=== PATIENT | male | born 1990 | race Caucasian/White ===

== ENCOUNTER 2018-01-05 14:44 | Outpatient (RCR) | payer BC ==
[2018-01-05 16:22] LABS: SEMEN VOLUME 6.6 ML (1.5-5.0)
== END 2018-04-05 | disposition home or self-care (01) ==
LOC: LAB 14:44
PROVIDERS: ATTEND Nurse Practitioner Family
DX: N46.9 Male infertility, unspecified (principal)
CPT/HCPCS: 89320

== ENCOUNTER 2019-03-05 05:39 | Emergency (ER) | payer BC, OTHER ==
[~2019-03-05] VITALS: Ht 182.9 cm; Wt 77.1 kg
--- NOTE | 2019-03-05 05:55 | ED Upper Extremity ---
General Chief Complaint: Upper Extremity Stated Complaint: W/C, SMASHED RIGHT MIDDLE FINGER Nursing Triage Note: PT AMBULATE TO ROOM FS06 WITH C/O RIGHT FINGER INJURY WHILE AT WORK. PT REPORTS HIS FINGER WAS SMASHED IN BETWEEN TWO PIECES OF METAL. Nursing Sepsis Screen: No Definite Risk Source: patient Exam Limitations: no limitations (CHRISTIANE AGUILAR DO) History of Present Illness Date Seen by Provider: Mar 05, 2019 Time Seen by Provider: 05:55 Initial Comments 28-year-old male reports that he smashed his right middle finger while at work. He reports that he smashed between 2 pieces of metal. He has some minor bleeding and injury to the nail. He has full range of motion but painful. Patient reports no other injuries. (CHRISTIANE AGUILAR DO) Allergies and Home Medications Allergies Coded Allergies: Penicillins (Unverified Allergy, Unknown, 03/05/19) Patient Home Medication List Home Medication List Reviewed: Yes (CHRISTIANE AGUILAR DO) Review of Systems Constitutional: no symptoms reported Respiratory: no symptoms reported Cardiovascular: no symptoms reported Gastrointestinal: no symptoms reported Genitourinary: no symptoms reported Musculoskeletal: see HPI Skin: see HPI (CHRISTIANE AGUILAR DO) Past Tfsxekr-Hzwswd-Nvlzag Hx Past Med/Social Hx: Reviewed Nursing Past Med/Soc Hx (CHRISTIANE AGUILAR DO) Patient Social History Alcohol Use: Occasionally Uses Recreational Drug Use: No Smoking Status: Never a Smoker 2nd Hand Smoke Exposure: No Recent Foreign Travel: No Contact w/Someone Who Travel: No Recent Infectious Disease Expo: No Recent Hopitalizations: No Physical Abuse: No Sexual Abuse: No Mistreated: No Fear: No (CHRISTIANE AGUILAR DO) Seasonal Allergies Seasonal Allergies: Yes (CHRISTIANE AGUILAR DO) Past Medical History Surgeries: Yes Adenoidectomy, Tonsillectomy Respiratory: Yes Asthma Cardiac: No Neurological: No Genitourinary: No Gastrointestinal: No Musculoskeletal: Yes Scoliosis Endocrine: No HEENT: No Cancer: No Psychosocial: No Integumentary: No Blood Disorders: No (CHRISTIANE AGUILAR DO) Physical Exam Vital Signs Vital Signs - First Documented 03/05/19 05:46 Temp 36.3 Pulse 64 Resp 16 B/P (MAP) 134/69 (90) O2 Delivery Room Air (AMELIA SANDHU DO) Vital Signs Capillary Refill : Less Than 3 Seconds (CHRISTIANE AGUILAR DO) Height, Weight, BMI Height: '" Weight: lbs. oz. 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, alert, oriented x 3 Skin: normal color, warm/dry (CHRISTIANE AGUILAR DO) Wrist: Yes normal inspection, Yes non-tender, Yes no evidence of injury, Yes normal ROM Hand: nail injury (right 3rd finger nail distally slightly elevated with soft tissue swelling beneath, no nailbed injury, no entrapped subungual hematoma, minor abrasion to flexor surface of distal 3rd finger tip) (AMELIA SANDHU DO) Procedures/Interventions Wound Location: Upper Extremities Other Wound Location right 3rd finger crush/nail injury Wound Length (cm): 1 Anesthesia: 1% Lidocaine Volume Anesthetic (ccs): 4 Progress 3-sided digital block performed with 1% lidocaine to right 3rd finger, finger pressed and blood evacuated, appears to be in normal anatomic alignment, no nailbed injury, no laceration requiring suture, bandaid applied, finger splint applied (AMELIA SANDHU DO) Progress/Results/Core Measures Results/Orders My Orders Orders - AMELIA SANDHU DO Lidocaine 1% Inj 20 Ml (Xylocaine 1% Inj (03/05/19 06:30) (AMELIA SANDHU DO) Medications Given in ED Current Medications Medications Dose Ordered Sig/Vania Route Start Time Stop Time Status Last Admin Dose Admin Lidocaine HCl 20 ml ONCE ONCE INJ 03/05/19 06:30 03/05/19 06:31 DC 03/05/19 06:28 20 ML (AMELIA SANDHU DO) Vital Signs/I&O 03/05/19 05:46 Temp 36.3 Pulse 64 Resp 16 B/P (MAP) 134/69 (90) O2 Delivery Room Air (AMELIA SANDHU DO) Blood Pressure Mean: 90 Progress Progress Note : Progress Note @0600 - Patient care transferred from Dr. Aguilar to Dr. Sandhu at this time. X-ray result is pending however ED physician review at this time does not show an obvious fracture. @0620 - Digital block performed at this time. No active bleeding. No injury to the nailbed itself but soft tissue below distal nail is swollen raising the distal nail somewhat. (AMELIA SANDHU DO) Departure Impression Primary Impression: Injury of nail Additional Impression: Crushed finger, distal Disposition: 01 HOME, SELF-CARE Condition: Stable Departure-Patient Inst. Decision time for Depature: 06:45 (AMELIA SANDHU DO) Referrals: NO,LOCAL PHYSICIAN (PCP/Family) Primary Care Physician Patient Instructions: Common Finger Injuries (DC), Crush Injury, Nail Avulsion, SPLINT CARE Add. Discharge Instructions: Keep the bandage in place for the next 1-2 days. Return to the ER for new or worsening symptoms. Follow-up with your doctor in the next 2-3 days. CHRISTIANE AGUILAR DO Mar 05, 2019 05:55 AMELIA SANDHU DO Mar 05, 2019 06:29
[2019-03-05] MEDS ORDERED: LIDOCAINE 1% INJ 20 ML 20 ML VIAL INJ ONE (06:30)
[2019-03-05] MEDS ORDERED: TRAM50TA2 PO (06:49)
[2019-03-05 07:05] VITALS: BP 134/69
--- NOTE | 2019-03-05 07:09 | Diagnostic Imaging Report ---
INDICATION: Hand trauma. 3 views were obtained. FINDINGS: The alignment is normal. There is no fracture or dislocation. Soft tissues are grossly unremarkable although there is questionable partial avulsion of the 3rd fingernail. IMPRESSION: No acute fracture or dislocation Dictated by: Dictated on workstation # [id number]
== END 2019-03-05 07:05 | disposition home or self-care (01) ==
LOC: EDUNIT# 05:39 → ER FS 05:41
DX: S67.192A Crushing injury of right middle finger, initial encounter (principal); J45.909 Unspecified asthma, uncomplicated; Z88.0 Allergy status to penicillin; Z90.49 Acquired absence of other specified parts of digestive tract; W23.1XXA Caught, crushed, jammed, or pinched between stationary objects, initial encounter; Y92.59 Other trade areas as the place of occurrence of the external cause
CPT/HCPCS: 73130